=== PATIENT | female | born 1975 | race African-American/Black ===

== ENCOUNTER 2018-01-09 17:10 | Emergency (ER) | payer OTHER ==
[~2018-01-09] VITALS: Ht 167.6 cm; Wt 127.0 kg
[~2018-01-09 17:10] MED LIST: CHLORTHALIDONE25 MG PO; CITRATE OF MAG296 ML PO; CLEOCIN HCL300 MG PO; COLACE100 MG PO; K-DUR 20 MEQ T20 MEQ PO; LISINOPRIL5 MG PO; LORATIDINE 10 M10 M1 PO; LORTAB 5-500 T1 EAC1 PO; PENICILLIN V P500 MG PO; PERIDEX 0.12%473 M1 SSP; TL-FOL 500 CAP1 EACH PO; TRAMADOL 50 MG50 MG PO; VITAMIN D400 UNI1 PO; ZOFRAN ODT4 MG PO
[2018-01-09] MEDS ORDERED: VITAMIN D2000 UNIT PO (17:20)
[2018-01-09] MEDS ORDERED: FLONASE 0.05%50 MCG NASAL (17:35)
== END 2018-01-09 17:54 | disposition home or self-care (01) ==
LOC: ER 17:10
DX: J32.1 Chronic frontal sinusitis (principal); J32.2 Chronic ethmoidal sinusitis; J30.9 Allergic rhinitis, unspecified; H92.02 Otalgia, left ear; I10 Essential (primary) hypertension; Z90.710 Acquired absence of both cervix and uterus

== ENCOUNTER 2020-04-27 11:02 | Emergency (ER) | payer OTHER ==
[~2020-04-27] VITALS: Ht 165.1 cm; Wt 130.2 kg
[~2020-04-27 11:02] MED LIST changes: +FLONASE 0.05%50 MCG NASAL; +VITAMIN D2000 UNIT PO
[2020-04-27 11:05] VITALS: BP 133/75
== END 2020-04-27 11:55 | disposition home or self-care (01) ==
LOC: ER 11:02
DX: S60.444A External constriction of right ring finger, initial encounter (principal); I10 Essential (primary) hypertension; Z79.899 Other long term (current) drug therapy; Z90.710 Acquired absence of both cervix and uterus; W22.8XXA Striking against or struck by other objects, initial encounter; Y93.89 Activity, other specified; Y92.89 Other specified places as the place of occurrence of the external cause; Y99.9 Unspecified external cause status